=== PATIENT | female | born 2005 | race Caucasian/White ===

== ENCOUNTER 2024-06-16 14:41 | Emergency (ER) | payer BC, SELFPAY ==
[2024-06-16 14:43] VITALS: BP 112/70; PULSE 78; RESP 20; TEMP 36.4; O2SAT 98
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
[2024-06-16] MEDS: Acetaminophen 325 MG TAB 650 MG PO (15:32)
[2024-06-16] MEDS: Lidocaine/Epinephri/Tetracaine Topical Gel 3 ML (15:33)
[2024-06-16] MEDS: Ibuprofen 400 MG TAB (16:57)
[2024-06-16 17:04] VITALS: BP 116/70; PULSE 58; RESP 18; TEMP 36.8; O2SAT 100
--- NOTE | 2024-06-18 09:41 | NUR.NOTE ---
Accessed Pt chart to see if there is a referral. Pts father asked for the referral be sent to [facility] and [facility]
== END 2024-06-16 17:14 | disposition home or self-care (01) ==
LOC: ER 17:14
PROVIDERS: Emergency Provider Emergency Medicine
DX: S52.121A Displaced fracture of head of right radius, initial encounter for closed fracture (principal); V18.0XXA Pedal cycle driver injured in noncollision transport accident in nontraffic accident, initial encounter; S71.112A Laceration without foreign body, left thigh, initial encounter
CPT/HCPCS: 12002; 90471; 90715; 99284; 73060; 73080; 73090